=== PATIENT | female | born 1995 | race African-American/Black ===

== ENCOUNTER 2022-10-02 11:09 | Emergency (ER) | payer SELFPAY ==
[~2022-10-02] VITALS: Ht 165.1 cm; Wt 120.0 kg
[2022-10-02 11:13] VITALS: TEMP 98.6; O2SAT 100
[2022-10-02] MEDS ORDERED: KETOROLAC 30MG/ML VIAL IM STA (11:46)
[2022-10-02] MEDS ORDERED: DICYCLOMINE 10 MG/5 ML ORAL SYR PO STA (11:46)
[2022-10-02] MEDS ORDERED: MAGNESIUM/ALUMINUM HYDROXIDE/SIMETHICONE 30ML UDC PO STA (11:46)
[2022-10-02] MEDS ORDERED: ONDANSETRON 4MG ODT PO STA (11:46)
[2022-10-02 12:16] LABS: BASOPHILS % 0.2 % (0.0-2.0); EOSINOPHILS % 0.1 % (0.0-5.0); HEMATOCRIT. 36.8 % (36.0-48.0); HEMOGLOBIN. 12.6 g/dL (12.0-16.0); LYMPHOCYTES % 7.2 % (20.0-50.0); MEAN CORPUSCULAR HEMOGLOBIN 28.9 pg (28.0-32.0); MEAN CORPUSCULAR VOLUME 84.3 fL (81.0-99.0); MEAN PLATELET VOLUME 7.7 fl (7.4-10.4); MONOCYTES % 5.2 % (2.0-8.0); NEUTROPHILS % 87.3 % (40.0-76.0); PLATELET 462 x1000/uL (130-400); RED BLOOD CELL COUNT 4.37 mill/uL (4.2-5.4); RED CELL DISTRIBUTION WIDTH 15.1 % (11.6-14.6)
[2022-10-02 12:25] LABS: CHLORIDE 111 mEq/L (98-107)
[2022-10-02 12:27] LABS: HCG SCREEN NEGATIVE
[2022-10-02] MEDS ORDERED: ONDA4TAB50 PO (14:12)
[2022-10-02] MEDS ORDERED: TOPUD PO (14:12)
[2022-10-02 14:30] VITALS: BP 132/91; PULSE 89; RESP 16
[2022-10-02] MEDS ORDERED: MAGNESIUM/ALUMINUM HYDROXIDE/SIMETHICONE 30ML UDC PO NR (14:30)
[2022-10-02] MEDS ORDERED: ONDANSETRON 4MG ODT PO NR (14:30)
[2022-10-02] MEDS ORDERED: KETOROLAC 30MG/ML VIAL IM NR (14:30)
== END 2022-10-02 14:58 | disposition home or self-care (01) ==
LOC: EDBD 11:55 → ER 11:55
DX: K80.20 Calculus of gallbladder without cholecystitis without obstruction (principal)
CPT/HCPCS: 99285; 76705; 80053; 84703; 83690; 85025; 36415; 96372; Q0162; J1885